=== PATIENT | female | born 1985 | race Caucasian/White ===

== ENCOUNTER 2021-08-31 18:15 | Emergency (ER) | payer BC, SELFPAY ==
[2021-08-31 18:41] VITALS: BP 125/69; PULSE 82; RESP 17; TEMP 37.4; O2SAT 100
--- NOTE | 2021-08-31 19:18 | ED.GENADULT ---
HPI - General Adult General Chief complaint: Upper Respiratory Infection Stated complaint: sorethroat Source: patient Mode of arrival: ambulatory History of Present Illness HPI narrative: Patient presents for evaluation of sore throat. Symptom onset today. She reports subjective fever and mild chills. Her daughter was diagnosed with strep pharyngitis yesterday. No otalgia, cough, shortness of breath, nausea, vomiting, diarrhea. She does not smoke. She is not taking any medications to assist with her symptoms. No additional complaints or concerns. Related Data Allergies Allergy/AdvReac Type Severity Reaction Status Date / Time No Known Allergies Allergy Verified 08/31/21 19:04 Review of Systems Review of Systems: CONSTITUTIONAL: Reports subjective fever and chills EYES: Denies visual changes, redness, or discharge. ENT: Reports sore throat. Denies rhinorrhea, congestion, or otalgia. CARDIOVASCULAR: Denies chest pain, palpitations, or edema. RESPIRATORY: Denies cough or dyspnea. GASTROINTESTINAL: Denies abdominal pain, nausea, vomiting, or diarrhea. GENITOURINARY: Denies dysuria or hematuria. SKIN: Denies rash or itching. MUSCULOSKELETAL: Denies back pain, joint pain, or myalgia. NEUROLOGIC: Denies headache, numbness, dizziness, or weakness. PSYCHIATRIC: Denies anxiety or depression. PMFSH Past Medical History Medical History No pertinent past medical history Surgical History Surgical History History of Family History Family History (Updated 08/31/21 @ 19:22 by FELICIA JohnsonP, ) Mother No pertinent past medical history Father Malignant neoplasm of prostate Social History Social History Smoking status: Never smoker Alcohol intake: current Alcohol use details: social Substance use: never Living arrangements: with family Gender identity (if verbalized by the patient): Female Sexual Orientation (if Verbalized by the Patient): Straight or Heterosexual Spiritual care concerns: No Exam Narrative: GENERAL: Well-appearing, well-nourished, and in no acute distress. HEAD: Normocephalic, atraumatic. EYES: PERRLA and EOMI. ENT: Nares clear, no rhinorrhea or epistaxis. Mucous membranes moist. Posterior pharyngeal erythema without exudate. Uvula is midline. Bilateral TMs pearly mejía nonbulging NECK: Supple. No adenopathy or masses. No carotid bruits or JVD CHEST: Clear to auscultation. No respiratory distress. No wheezes rales or rhonchi HEART: Regular rate and rhythm. No murmur heard. Normal peripheral pulses. ABDOMEN: Soft, nontender, nondistended, normal active bowel sounds. EXTREMITIES: Normal range of motion. No edema. SKIN: Warm, dry, no rash. NEURO: No focal deficits. Alert and oriented x3. PSYCH: Normal mood and affect. Course Course Emergency Course: This is a 35-year-old female who presented with complaints of sore throat after her daughter was recently diagnosed with strep pharyngitis. Rapid strep was negative. We will treat with antibiotics based on exposure. Follow-up outpatient for further evaluation and treatment return for worsening symptoms. Patient agreed with plan of care. Level of Care: Express Care Visit Vital Signs Vital signs: Vital Signs Temperature 37.4 C 08/31/21 18:41 Pulse Rate 82 08/31/21 18:41 Respiratory Rate 17 08/31/21 18:41 Blood Pressure 125/69 08/31/21 18:41 Pulse Oximetry 100 08/31/21 18:41 Oxygen Delivery Room Air 08/31/21 18:41 Temperature 37.4 C 08/31/21 18:41 Pulse Rate 82 08/31/21 18:41 Respiratory Rate 17 08/31/21 18:41 Blood Pressure 125/69 08/31/21 18:41 Pulse Oximetry 100 08/31/21 18:41 Oxygen Delivery Room Air 08/31/21 18:41 Medical Decision Making Differential Diagnosis Differential
== END 2021-08-31 19:24 | disposition home or self-care (01) ==
PROVIDERS: Emergency Provider Nurse Practitioner
DX: J02.9 Acute pharyngitis, unspecified (principal); Z20.818 Contact with and (suspected) exposure to other bacterial communicable diseases
CPT/HCPCS: 87081; 87147; 87880; 99203; G0463